=== PATIENT | female | born 2000 | race African-American/Black ===

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

== ENCOUNTER → 2019-11-30 12:32 | Outpatient (CLI) | payer MEDICAID, SELFPAY ==
[2017-07-15 13:20] VITALS: BMI 24.1
[2019-11-30 15:33] LABS: HIV - WCH Non-Reactive (Nonreactive); Hepatitis B Surface Antigen Non-Reactive (Nonreactive); Hepatitis C Antibody Non-Reactive (Nonreactive)
[2019-12-03 14:07] LABS: Chlamydia By Nucleic Acid AMP Negative (Negative)
[2019-12-04 00:29] LABS: Gonococcus By Nucleic Acid AMP Negative (Negative)
[2019-12-07 04:30] LABS: Rapid Plasmin Reagin (RPR) NONREACTIVE (NONREACTIVE)
== END ==
PROVIDERS: PCP Nurse Practitioner Primary Care; Referring Provider Student in an Organized Health Care Education/Training Program; Visit Provider Student in an Organized Health Care Education/Training Program
DX: Z11.3 Encounter for screening for infections with a predominantly sexual mode of transmission (principal)
CPT/HCPCS: 36415; 86592; 86703; 86803; 87340; 87491; 87591

== ENCOUNTER → 2020-07-23 13:19 | Outpatient (CLI) | payer MEDICAID, SELFPAY ==
[2017-07-15 13:20] VITALS: BMI 24.1
== END ==
PROVIDERS: PCP Nurse Practitioner Primary Care; Visit Provider Student in an Organized Health Care Education/Training Program
DX: N76.0 Acute vaginitis (principal)

== ENCOUNTER → 2021-01-16 10:55 | Outpatient (CLI) | payer MEDICAID, SELFPAY ==
[2021-01-24 09:26] LABS: HPV APTIMA, High Risk Positive (Negative); HPV Reflexed? YES, CHARGE PATIENT
== END ==
PROVIDERS: PCP Nurse Practitioner Primary Care; Visit Provider Student in an Organized Health Care Education/Training Program
DX: Z12.4 Encounter for screening for malignant neoplasm of cervix (principal)
CPT/HCPCS: 87624; 88175; G0145

== ENCOUNTER 2022-04-09 17:09 | Emergency (ER) | payer MEDICAID, SELFPAY ==
[2022-04-09 17:10] VITALS: BP 124/78; PULSE 85; RESP 16; TEMP 36.6; O2SAT 99; BMI 25.8
--- NOTE | 2022-04-09 18:16 | EX.ED.DYSGE1 ---
HPI History of Present Illness Chief Complaint: General Illness Narrative Narrative: 21-year-old female who denies significant past medical history except for seasonal allergies presents with upper respiratory infection type symptoms that she has had for a week. She is had nasal congestion along with rhinorrhea, sore throat, and a cough productive of green sputum. She denies any fevers or chills. She states the worst symptoms are the cough and shortness of breath. She has been taking her allergy medications and using cough drops. She presents because she has not gotten better and thinks she has a bad sinus infection. PFSH PFSH Medical History no medical history Home Medications NK 04/09/22 [History Last Taken Unknown] Allergy/AdvReac Type Severity Reaction Status Date / Time Penicillins [PCN] Allergy Hives Verified 04/09/22 17:10 Surgical History no surgical history Social History Smoking Status: Current every day smoker tobacco type: cigarettes ROS ROS ED ROS Narrative Constitutional: No fever, no chills. HEENT: Positive sore throat. No neck pain. No loss of vision. Positive nasal congestion and rhinorrhea. Cardiovascular: No chest pain. No palpitations. No pedal edema. Respiratory: Productive of green sputum cough, positive shortness of breath. Abdominal: No abdominal pain. No nausea. No vomiting. Genitourinary: No dysuria. No hematuria. Musculoskeletal: No myalgias. No arthralgias. Neurologic: No headaches. No dizziness. No lightheadedness. Skin: No rash. No change in color. Psychiatric: No depression. No anxiety. EXAM Physical Exam Narrative Exam Narrative: Afebrile. Vital signs noted. Pulse ox 99% on room air without evidence of hypoxia. HEENT: Normocephalic. Atraumatic. PERRL, EOMI. Neck soft and supple. No point tenderness or step off. Mild pharyngeal erythema but no tonsillar or pharyngeal exudate. Airway patent. No drooling or trismus. No meningismus. Cardiovascular: Regular rate and rhythm. No murmurs, rubs, or gallops appreciated. Respiratory: No tachypnea. Lungs clear to auscultation bilaterally. Gastrointestinal: Abdomen soft, nontender, with normoactive bowel sounds. No rebound or guarding. Neurological: Awake. Alert. Nonfocal, nonlateralizing. Skin: No rash. Normal color. No pallor. Musculoskeletal: No pedal edema. Full range of motion extremities. Const Vital Signs: 04/09/22 17:10 04/09/22 18:47 Temperature 97.8 F Temperature Source Temporal Pulse Rate 85 Respiratory Rate 16 Respiratory Effort Normal Non-Labored Respiratory Pattern Normal Blood Pressure 124/78 H Blood Pressure Mean 93 Pulse Ox 99 Oxygen Delivery Method Room Air MDM MDM MDM Narrative Medical decision making narrative: She does not meet any [facility] criteria for antibiotics for sore throat. I will swab her for COVID and influenza. She states her main concern is her cough and shortness of breath. She has a pulse ox of 99% on room air. Chest x-ray in 2 views will be obtained and interpreted by myself. My interpretation of her chest x-ray shows no evidence of an infiltrate or pneumothorax. I do not feel antibiotics are indicated. I also do not feel that an albuterol inhaler is indicated as she has no wheezing, and she has a normal pulse ox. I reviewed her COVID swab and influenza swab and they are negative. To be symptomatic with [id number] medications including Mucinex DM as needed. She will follow-up with her primary care provider. Return instructions to the emergency department were reviewed. Disposition is discharged home in stable condition. Lab Data Attestation: I reviewed the patient's lab results. Radiography Diagnostic Testing: Clinical Impression(s) from Imaging Studies Chest X-Ray 04/09/22 18:42 IMPRESSION: No radiographic evidence of acute cardiopulmonary disease. Electronically Signed: Huy Andrea MD at 18:54 EST , Discharge Plan Triage Chief Complaint: General Illness ED Provider: Curtis Denise Dx/Rx/DC Orders Clinical Impression: URI (upper respiratory infection), Bronchitis Instructions: ED Bronchitis, No Antibiotic (Adult), ED URI, Viral, No Abx (Adult) Prescriptions: No Action NK Stand Alone Forms: ED Work / School Excuse Primary Care Provider: Ivelisse Sood NP Referrals: Ivelisse Sood NP, AUTHORIZATION NURSE-C [Primary Care Provider] - 1 Week if not improving Disposition Disposition: Home, Self Care
--- NOTE | 2022-04-09 18:42 | RAD_ITS ---
EXAM: XR CHEST, 2 VIEWS CLINICAL INDICATION: cough, SOB TECHNIQUE: Frontal and lateral views of the chest. This report was created using [employer] report generation technology. COMPARISON: None. FINDINGS: LUNGS AND PLEURAL SPACES: Unremarkable. No consolidation or edema. No pneumothorax. No effusion. HEART: Unremarkable. Cardiac silhouette not enlarged. MEDIASTINUM: Central airways and mediastinal contour are unremarkable. BONES/JOINTS: Unremarkable. SOFT TISSUES: Unremarkable. RAD/Chest PA and Lateral IMPRESSION: No radiographic evidence of acute cardiopulmonary disease. Electronically Signed: Huy Andrea MD at 18:54 EST ,
== END 2022-04-09 19:29 | disposition home or self-care (01) ==
PROVIDERS: Emergency Provider Emergency Medicine; PCP Nurse Practitioner Primary Care; Visit Provider Emergency Medicine
DX: J06.9 Acute upper respiratory infection, unspecified (principal); J40 Bronchitis, not specified as acute or chronic; F17.210 Nicotine dependence, cigarettes, uncomplicated
CPT/HCPCS: 71046; 87428; 99282

== ENCOUNTER 2022-11-27 15:46 | Emergency (ER) | payer MEDICAID, SELFPAY ==
[2022-11-27 15:47] VITALS: BP 144/75; PULSE 98; RESP 18; TEMP 35.7; O2SAT 98
[2022-11-27 15:51] VITALS: BMI 27.8
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
[2022-11-27] MEDS: Diphth,Pertuss(Acell),Tet Vac 0.5 ML Vial IM (17:21)
[2022-11-27] MEDS: Ibuprofen 600 MG Tablet PO (17:22)
== END 2022-11-27 17:45 | disposition home or self-care (01) ==
PROVIDERS: Emergency Provider Emergency Medicine; PCP Nurse Practitioner Primary Care; Visit Provider Emergency Medicine
DX: S50.812A Abrasion of left forearm, initial encounter (principal); S60.511A Abrasion of right hand, initial encounter; F17.210 Nicotine dependence, cigarettes, uncomplicated; Z23 Encounter for immunization; X58.XXXA Exposure to other specified factors, initial encounter
CPT/HCPCS: 90471; 90715; 99283

== ENCOUNTER 2023-03-27 11:12 | Emergency (ER) | payer MEDICAID, SELFPAY ==
[2023-03-27 11:13] VITALS: BP 134/78; PULSE 104; RESP 16; TEMP 36.6; O2SAT 99; BMI 23.5
--- NOTE | 2023-03-27 11:27 | EDS_ITS ---
HPI History of Present Illness Chief Complaint: Complaint Detail of Chief Complaint: Dysuria and frequency Informant: patient Narrative Narrative: Patient presents to the emergency department with complaint of dysuria and urinary frequency. She states that she has had symptoms for over 2 months. She has not seen anybody for it. She complains of nausea. She is also had diarrhea for several months. She denies blood in her stool or urine. No family history of Crohn's disease or ulcerative colitis. She denies fevers. She denies back pain. She has no medical history otherwise. Patient denies abnormal vaginal discharge. She does not believe that she is . Patient does state that there was a foul odor to the urine. PFSH PFSH Medical History no medical history Home Medications doxycycline monohydrate 100 mg capsule 100 mg PO BID #14 CAPSULES 03/27/23 [Rx Last Taken Unknown] Allergy/AdvReac Type Severity Reaction Status Date / Time Penicillins [PCN] Allergy Hives Verified 03/27/23 11:13 Social History Smoking Status: Current every day smoker tobacco type: cigarettes ROS ROS ED Review of Systems ROS Unobtainable: other Constitutional Constitutional ED: Reports lethargy; Denies chills, fever(s), sweats or weight loss Eyes Eyes: Denies blurry vision, change in vision or diplopia ENT ENT ED: Denies rhinorrhea or sore throat Cardiovascular Cardiovascular: Denies chest pain, orthopnea or racing heartbeat Respiratory/Chest Respiratory/Chest: Reports dyspnea and dyspnea on exertion; Denies cough, orthopnea or sputum Gastrointestinal Gastrointestinal: Reports abdominal pain and nausea; Denies diarrhea or vomiting Genitourinary Genitourinary ED: Reports dysuria and urinary frequency; Denies hematuria Musculoskeletal Musculoskeletal: Denies arthralgias, back pain, myalgias or neck pain Integumentary Denies abscess, Abrasions or rash Neurologic Neurologic: Denies headache(s) or weakness Psychiatric Psychiatric: Denies anxiety, depression or suicidal thoughts Endocrine Endocrinology: Denies polydipsia, polyphagia or polyuria Hematologic/Lymphatic Hematologic/Lymphatic: Denies easy bleeding, easy bruising or lymphadenopathy Allergic/Immunologic Allergic/Immunologic ED: Denies mouth swelling, tongue swelling or urticaria EXAM Physical Exam Const Vital Signs: 03/27/23 11:13 Temperature 97.8 F Temperature Source Temporal Pulse Rate 104 H Respiratory Rate 16 Blood Pressure 134/78 H Blood Pressure Mean 96 Pulse Ox 99 Oxygen Delivery Method Room Air Positive well nourished and well developed General Appearance ED: well developed and NAD HEENT Reports TM's clear and moist mucous membranes normocephalic and atraumatic; Negative for trauma or tenderness Tympanic Membrane ED: Yes TM's clear Eyes PERRL and EOMs intact bilaterally General Eye ED: Negative for pale conjunctiva or scleral icterus Neck no lymphadenopathy, supple and no JVD General: Negative for tenderness Chest Wall inspection of chest normal and palpation of chest normal Chest: Negative for tenderness Resp normal respiratory effort and clear to auscultation bilaterally Effort and Inspection: Negative for respiratory distress or pain with movement Auscultation: Negative for rhonchi, wheezes or diminished lung sounds Cardio regular rate, regular rhythm, S1 normal heart sound, S2 normal heart sound and no murmurs Peripheral Pulses: pulses 2+ throughout GI normal to inspection, nondistended, normoactive bowel sounds, soft to palpation, non-tender, non-distended and no masses Back/Spine no CVA tenderness and no thoracic nor lumbar tenderness Extremity normal to inspection General Extremety ED: Negative for edema General Extremity: Negative for edema Neuro oriented x3, CN's II-XII intact bilaterally, no sensory deficits noted and gait normal Sensorium / Orientation: awake, alert, oriented to person, oriented to place and oriented to time Motor Exam: strength 5/5 throughout and strength abnormal Psych mental status grossly normal Skin no rashes or lesions noted and no wounds MDM MDM MDM Narrative Medical decision making narrative: Patient presents with dysuria and frequency and foul odor x 2 months. She describes lower pelvic discomfort. Initially she did not hide significant vaginal discharge. Her urinalysis obtained was essentially normal. Urine Prag was negative. After given her her results she states that she was involved with a gentleman several months ago and that is when her symptoms started and she felt like maybe he gave her a UTI. I did send off urine for gonorrhea and chlamydia. Will treat her with Rocephin and doxycycline. Advised her to follow-up with primary care physician within next 3 to 5 days. Clinically she looks well and her abdominal exam is benign and I do not feel she needs any type of imaging. Lab Data Attestation: I reviewed the patient's lab results. Labs: Laboratory Results - last 24 hr 03/27/23 11:37 Urine Color Yellow Urine Clarity Clear Urine pH 5.0 Ur Specific [place] 1.030 Urine Protein 15 H Urine Glucose (UA) Normal Urine Ketones 15 H Urine Occult Blood Negative Urine Nitrite Negative Urine Bilirubin Negative Urine Urobilinogen Normal Ur Leukocyte Esterase 25 H Urine RBC 0 SEEN Urine WBC 0-5 SEEN Ur Squamous Epith Cells 0-5 SEEN Urine Bacteria 0 SEEN Urine Mucus 0 SEEN Urine Test Negative Discharge Plan Triage Chief Complaint: Complaint ED Provider: Carina Katz Dx/Rx/DC Orders Clinical Impression: Urethritis Instructions: ED Cervicitis (STD), Treated, ED Pelvic Pain, Unknown Cause Prescriptions: New doxycycline monohydrate 100 mg capsule 100 mg PO BID Qty: 14 0RF Primary Care Provider: Ivelisse Sood NP Referrals: Ivelisse Sood NP, [facility] [Primary Care Provider] - 3-5 Days Disposition Disposition: Home, Self Care Discharge Date/Time: 03/27/23 13:18
--- OUTSIDE RECORDS SUMMARY | 2023-03-27 11:42 | XMS RPT_ITS | CCD ---
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 FoundNo Advanced Directives Records Found Additional Source Comments INFORMATION SOURCE (unrecogn ized section and content) DATE CREATED AUTHOR AUTHOR'S ORGANIZ ATION 05/19/2020 [facility] ([place]) Care Team (unrecognized sect ion and content) Care Team Personnel Name: Sadaf Digital Marketing Assistant Lisa PT Position: P3 Scheduling - Incoming Freight Clerk Advanced Member Role: Other Name: RENUKA GONZALEZ DO Position: P4 Physician - Primary Care Member Role: Primary Care Physician Address: Address: [address] [place] [id number] Name: REY SALDANA MD Position: ED Physician Member Role: ED Physician Address: Address: [facility] [address] [place] [id number] Care Team Related Persons Name: DEREK JUSTIN Address: Home [address] [place], [place] [id number] [place] Name: JUSTIN REED Address: Home [address] [place], [place] [id number] [place] Name: DEREK JUSTIN Address: Home [address] [place], [place] [id number] [place] Name: REEDJUSTIN Address: Home [address] [place], [place] [id number] [place] FOR RECORDS PERTAINING TO PATIENTS WHO ARE OR HAVE BEEN ENROLLED IN A CHEMICAL DEPENDENCY/SUBSTANCEABUSE PROGRAM, SOME INFORMATION MAY BE OMITTED. This clinical summary was aggregated from multiple sources. Caution should be exercised in using it in the provision of clinical care. This summary normalizes information from multiple sources, and as a consequence, information in this document may materially change the coding, format and clinical context of patient data. In addition, data may be omitted in some cases. CLINICAL DECISIONS SHOULD BE BASED ON THE PRIMARY CLINICAL RECORDS. [facility] [employer], [facility]. provides no warranty or guarantee of the accuracy or completeness of information in this document.
[2023-03-27 11:48] LABS: Bacteria 0 SEEN /hpf (None Seen); Mucous, Urine 0 SEEN /hpf (<or=2+); Red Blood Cells-Urine 0 SEEN /hpf (0-5)
[2023-03-27 11:50] LABS: Color, Urine Yellow (Yellow); Glucose, Dipstick Normal (Normal); Ketone-Dipstick 15 mg/dl (Negative); Leukocyte Esterase-Dipstick 25 /ul (Negative); Nitrite-Dipstick Negative (Negative); Occult Blood-Urine Negative /ul (Negative); Protein-Dipstick 15 mg/dl (Negative); Urine Bilirubin Dipstick Negative (Negative); Urine Clarity Clear (Clear); Urine Urobilinogen Normal (Normal)
[2023-03-27 11:53] LABS: Internal QC Validated? YES +Cl - CLEAR BKGD; Pregnancy, Urine Negative Negative; Record Kit Lot#,Urine Preg HCG0000667200; Squamous Epithelial Cells - UA 0-5 SEEN /hpf (5-10); White Blood Cells 0-5 SEEN /hpf (0-5)
[2023-03-27] MEDS: Doxycycline 100 MG CAPSULE PO (13:10)
[2023-03-27] MEDS: Ceftriaxone 500 MG Vial 250 MG IM (13:10)
== END 2023-03-27 13:18 | disposition home or self-care (01) ==
PROVIDERS: Emergency Provider Emergency Medicine; PCP Nurse Practitioner Primary Care; Visit Provider Emergency Medicine
DX: N34.2 Other urethritis (principal); F17.210 Nicotine dependence, cigarettes, uncomplicated
CPT/HCPCS: 81001; 81025; 87491; 87591; 96372; 99282; A4216

== ENCOUNTER 2023-06-13 18:19 | Emergency (ER) | payer MEDICAID, SELFPAY ==
[2023-06-13 18:20] VITALS: BP 138/95; PULSE 110; RESP 14; TEMP 36.7; O2SAT 99; BMI 22.7
[2023-06-13 18:42] VITALS: BP 122/92; PULSE 104; RESP 16; TEMP 36.6; O2SAT 97
--- NOTE | 2023-06-13 18:52 | EX.ED.VIS.PS ---
HPI HPI - Psych History of Present Illness Chief Complaint: Mental Health Narrative Narrative: 21-year-old female presenting with depression. She states she has had this in the past. She states her mother committed suicide. She used to see some kind of counselor downtown in [place] but she cannot recall the name of the counselor. She states that she wanted her to be on medication but the patient states that she does not believe medication helps people and believes as long as she prays and has a healthy diet she will get better. Patient has never been on any medication. She states that she has been struggling with depression. She started having cutting behavior on her left arm which she has not had in the past. She denies suicidal ideation and states she does not want to . She denies homicidal ideation or desire to hurt anybody. She states that she had seen somebody from [facility] at 1 point but that they did not shah and in addition to that she did not want to walk downtown to get help. [facility] Medical History Depression Home Medications drospirenone 3 mg-ethinyl estradiol 0.02 mg tablet (Tonia (28)) 1 tab PO ONCE 07/16/17 [History Last Taken Unknown] Allergy/AdvReac Type Severity Reaction Status Date / Time Penicillins Allergy Mild Unknown Verified 06/13/23 18:30 Family History no significant family his Surgical History no surgical history Social History Smoking Status: Current some day smoker tobacco type: e-cigarettes ROS ROS ED Constitutional Constitutional ED: Denies chills, fever(s) or sweats Eyes Eyes: Denies blurry vision or change in vision ENT ENT ED: Denies ear pain or sore throat Cardiovascular Cardiovascular: Denies chest pain, palpitations or racing heartbeat Respiratory/Chest Respiratory/Chest: Denies cough, dyspnea or sputum Gastrointestinal Gastrointestinal: Denies abdominal pain, constipation, diarrhea, nausea or vomiting Genitourinary Genitourinary ED: Denies dysuria, hematuria or urinary frequency Musculoskeletal Musculoskeletal: Denies arthralgias, myalgias or neck pain Integumentary Denies abscess, Abrasions or rash Neurologic Neurologic: Denies headache(s), paresthesias or weakness Psychiatric Psychiatric: Reports depression; Denies anxiety, suicidal ideation or suicidal thoughts Endocrine Endocrinology: Denies polydipsia or polyuria EXAM Physical Exam Const Vital Signs: 06/13/23 18:20 06/13/23 18:42 06/13/23 19:20 Temperature 98.1 F 98 F Temperature Source Temporal Temporal Pulse Rate 110 H 104 H 78 Respiratory Rate 14 16 16 Blood Pressure 138/95 H 122/92 H Blood Pressure Mean 109 102 Pulse Ox 99 97 100 Oxygen Delivery Method Room Air Room Air 06/13/23 20:00 06/13/23 21:00 Temperature Temperature Source Pulse Rate 82 78 Respiratory Rate 16 16 Blood Pressure Blood Pressure Mean Pulse Ox 100 98 Oxygen Delivery Method Positive well nourished General Appearance ED: NAD; Negative for pallor HEENT Reports moist mucous membranes Eyes PERRL and EOMs intact bilaterally Resp normal respiratory effort Cardio Rate: regular rate Rhythm: regular rhythm Neuro oriented x3 and CN's II-XII intact bilaterally Sensorium / Orientation: alert Motor Exam: strength 5/5 throughout Psych mental status grossly normal, denies hallucinations, denies homicidal ideation and denies suicidal ideation Appearance: appropriate Attitude: calm and guarded Activity / Motor Behavior: fidgetting and avoids eye contact Speech: normal speech Mood & Affect: sad Thought Process: No disorganized, No confused, No confabulating and No illogical Thought Content: normal thought content, No suicidality, No homicidality, No phobia(s) and No delusion(s) Attention / Concentration: attention grossly intact Memory / Cognition: memory grossly intact Insight: fair Judgement: fair Skin Skin Narrative: Multiple superficial abrasions to the left arm. No active bleeding. No lacerations. General Skin Exam: Negative for jaundice or pallor MDM MDM MDM Narrative Medical decision making narrative: Patient was able to talk to crisis. Crisis counselor spoke with her at length as well as her roommate and her and to is like a mother to her. Apparently there was a lot of talk of suicide and at one point they had a gun in the house where the patient states she was going to kill herself with a gun so the gun had to be removed. Apparently the patient has been hallucinating and the family has become very concerned as well as her friend. She has history of suicide attempt by drug overdose in the past. Apparently the patient also hearing voices. At this point I feel the patient would benefit from inpatient care and we did pink slip the patient. Appropriate lab work for clearance will be obtained. CBC shows normal white blood cell count 9.2. Hemoglobin 14.4. Platelets 333. Renal function within normal limits. Potassium slight low at 3.0 this was repleted orally with 40 mill equivalents. hCG negative. EtOH less than 3. Urine drug screen pending. Rapid COVID pending. Current plan is for placement once medically cleared. Impression: 1. Depression 2. Suicidal ideation 3. Hypokalemia 4. Superficial abrasions left arm Lab Data Attestation: I reviewed the patient's lab results. Labs: Laboratory Results - last 24 hr 06/13/23 18:46 WBC 9.2 RBC 4.94 Hgb 14.4 Hct 43.1 MCV 87.2 MCH 29.1 MCHC 33.4 RDW Std Deviation 39.2 RDW Coeff of Bibi 12.3 Plt Count 393 MPV 10.6 Immature Gran % (Auto) 0.200 Neut % (Auto) 64.6 Lymph % (Auto) 29.5 [place] % (Auto) 5.2 Eos % (Auto) 0.1 Baso % (Auto) 0.4 Absolute Neuts (auto) 5.9 Absolute Lymphs (auto) 2.72 Nucleated RBC % 0 Sodium 139 Potassium 3.0 L Chloride 104 Carbon Dioxide 28.0 Anion Gap 7 BUN 9 Creatinine 0.96 Estim Creat Clear Calc 85.32 Est GFR (MDRD) Af Amer 92 Est GFR (MDRD) Non-Af 76 BUN/Creatinine Ratio 9.3 L Glucose 91 Calcium 9.7 Serum , Qual NEGATIVE Ethyl Alcohol < 3.0 Discharge Plan Triage Chief Complaint: Mental Health ED Provider: Raghav De La Vega Dx/Rx/DC Orders Prescriptions: No Action drospirenone-ethinyl estradiol [Tonia (28)] 3-0.02 mg tablet 1 tab PO ONCE Primary Care Provider: Ivelisse Sood NP Referrals: Ivelisse Sood NP, [facility] [Primary Care Provider] -
[2023-06-13 19:20] VITALS: PULSE 78; RESP 16; O2SAT 100
[2023-06-13 20:00] VITALS: PULSE 82; RESP 16; O2SAT 100
[2023-06-13 21:00] VITALS: PULSE 78; RESP 16; O2SAT 98
--- NOTE | 2023-06-13 21:44 | ED.RN ---
PATIENT SEEN ON [facility] GETTING DRESSED AFTER CRISIS WAS DONE SEEING PATIENT. I ADVISED THE PATIENT THAT UNTIL I HAD HEARD FROM CRISIS AND THE DOCTOR SHE NEEDED TO REMAIN IN THE GOWN. PATIENT BECAME AGITATED AND STATED THIS IS FUCKING ER, THIS IS SUPPOSE TO BE FAST. I INFORMED THE PATIENT THAT SINCE CAME IN FOR MENTAL HEALTH AND EVALUATION DOES TAKE TIME. PATIENT THEN STATED LISTEN HERE BITCH, I'M NOT FUCKING STAYING HERE. THIS NURSE STEPPED OUT OF ROOM, CHARGE NURSE INFORMED AND SECURITY/POLICE CALLED TO THE DEPARTMENT. ARTIST'S MODEL INFORMED OF CURRENT BEHAVIOR. CRISIS SPOKE WITH DR. FERRER. DR. FERRER LET THIS NURSE THAT SHE WAS NOW PINKED SLIPPED. ARTIST'S MODEL INFORMED PATIENT THAT SHE WAS BEING PLACED AND COULD NOT LEAVE THE FACILITY. PATIENT VERY IRATE. THIS NURSE AND CHARGE NURSE NURSE STEPPED BACK INTO THE ROOM TO HAVE HER REMOVE HER BELONGINGS AND HAVE HER GET BACK INTO A GOWN. PATIENT STATED FUCK NO. AND CALLED HER AUNT. AFTER YELLING AT HER AUNT ON THE PHONE, PATIENT THREW THE PHONE AND BEGAN TO TAKE HER BELONGINGS OFF. BELONGING GATHERED. PATIENT CURRENTLY IN BED.
[2023-06-13 21:53] LABS: Absolute Lymphocyte Count 2.72 X10^3/uL (0.83-4.51); Absolute Neutrophil Count 5.9 X10^3/uL (2.0-7.7); Basophil# 0.04 X10^3/uL; Basophil% 0.4 % (0-1); Eosinophil# 0.01 X10^3/uL; Eosinophils% 0.1 % (0-5); Hematocrit 43.1 % (37-47); Hemoglobin 14.4 g/dL (12.0-15.0); Internal QC Validated? YES +Cl - CLEAR BKGD; Lymphocyte # 2.72 X10^3/ul (0.83-4.51); Lymphocyte % 29.5 % (19-41); Mean Corp Hgb Conc 33.4 g/dL (32-36); Mean Corpuscular Hgb 29.1 pg (27.0-32.0); Mean Corpuscular Volume 87.2 fL (81-99); Mean Platelet Vol. 10.6 fl (6.2-12.0); Monocyte# 0.48 X10^3/uL; Monocyte% 5.2 % (0-10); NRBC Flagged by Analyzer 0 % (0-5); Neutrophil # 5.94 X10^3/uL (2.7-7.7); Neutrophil % 64.6 % (47-70); Platelet Count 393 K/mm3 (150-450); Pregnancy, Serum, hCG Quali. NEGATIVE Negative; RBC Distribution Width CV 12.3 % (11.6-14.6); RBC Distribution Width SD 39.2 fl (35.1-43.9); Red Blood Count 4.94 M/mm3 (4.2-5.4); White Blood Count 9.2 K/mm3 (4.4-11.0)
[2023-06-13 21:54] LABS: Alcohol, Blood (Medical)-Serum < 3.0 mg/dL
[2023-06-13 21:56] LABS: Anion Gap 7 (5-15); BUN 9 mg/dL (7-18); BUN/Creat Ratio 9.3 RATIO (10-20); Calcium,Total 9.7 mg/dL (8.5-10.1); Chloride 104 mmol/L (98-107); Creatinine, Serum 0.96 mg/dL (0.55-1.02); EST Glomerular Filtration Rate 76 mL/min (>60); Est Glom Filt Rate - Afr Amer 92 mL/min (>60); Estimated Creatinine Clearance 85.32 ml/min; Glucose 91 mg/dL (74-106); Sodium Level 139 mmol/L (136-145)
[2023-06-13 22:09] VITALS: BP 128/78; PULSE 98; RESP 14; TEMP 36.6; O2SAT 98
[2023-06-13] MEDS: Potassium Chloride Oral Tablet 20 MEQ 40 MEQ PO (22:29)
[2023-06-13 23:52] LABS: Amphetamine Urine VISTA NEGATIVE (<1000 ng/mL); Barbiturate Urine VISTA NEGATIVE (< 200 ng/mL); Benzodiazepine Urine VISTA NEGATIVE (< 200 ng/mL); Cocaine Urine VISTA NEGATIVE (< 300 ng/mL); Ecstacy Urine VISTA NEGATIVE (< 500 ng/mL); Methadone Urine VISTA NEGATIVE (< 300 ng/mL); PCP Urine VISTA NEGATIVE (< 25 ng/mL); THC Urine VISTA POSITIVE (< 50 ng/mL); Vista UDS pH Range 7
[2023-06-14 00:22] VITALS: PULSE 81; RESP 18; O2SAT 99
[2023-06-14] MEDS: Haloperidol Lactate 5 MG/ML Vial IM (04:45)
[2023-06-14 04:54] VITALS: BP 118/76; PULSE 79; RESP 18; TEMP 36.6; O2SAT 100
--- NOTE | 2023-06-14 04:55 | ED.RN ---
Patient increasing in pacing in room. Patient is having delusions and is yelling while pacing. Agitation increasing as time goes by. Attempted to de-escalate. Patient states typically she meditates so calm. Encouraged meditation and deep breathing to center self. Unsuccessful, patient continues to yell about her family putting her in the ER. Dr. John informed of behavior and new orders given.
[2023-06-14 07:40] VITALS: BP 118/76; PULSE 79; RESP 18; O2SAT 100
== END 2023-06-14 08:01 ==
PROVIDERS: Emergency Provider Student in an Organized Health Care Education/Training Program; PCP Nurse Practitioner Primary Care; Visit Provider Student in an Organized Health Care Education/Training Program
DX: F32.A Depression, unspecified (principal); R45.851 Suicidal ideations; E87.6 Hypokalemia; S50.812A Abrasion of left forearm, initial encounter; F17.290 Nicotine dependence, other tobacco product, uncomplicated; X58.XXXA Exposure to other specified factors, initial encounter
CPT/HCPCS: 80048; 80307; 80320; 84703; 85025; 87635; 96372; 99285; G0480

== ENCOUNTER 2023-07-24 12:50 | Emergency (ER) | payer MEDICAID, SELFPAY ==
[2023-07-24] VITALS (8 sets, daily range): BP systolic 117–164; BP diastolic 71–100; PULSE 65–117; RESP 14–16; TEMP 36.7–36.8; O2SAT 98–99; BMI 24.2
--- NOTE | 2023-07-24 13:00 | ED.RN ---
when this RN asked pt if she was having any thoughts of harming anyone else?, patient states no, just you
--- NOTE | 2023-07-24 13:14 | EX.ED.VIS.PS ---
HPI <PETRA Ochoa - Last Filed: 07/24/23 17:51> HPI - Psych History of Present Illness Chief Complaint: Mental Health Narrative Narrative: Patient presenting today after being pink slipped by the police after being found walking in the street without clothes on. She does admit to taking PCP today. She reports that she has snakes all over her body. She repeatedly is yelling for a person named Nelson. Patient then stated, I need you to put your hands on my butt and get something out of there. When asked if she had any thoughts of harming others she reported that she had thoughts of harming the nurse and I. She denies any SI. PFSH <PETRA Ochoa - Last Filed: 07/24/23 17:51> PFSH Medical History Depression Allergy/AdvReac Type Severity Reaction Status Date / Time Penicillins Allergy Mild Unknown Verified 06/13/23 18:30 Social History Smoking Status: Current some day smoker tobacco type: e-cigarettes ROS <PETRA Ochoa - Last Filed: 07/24/23 17:51> ROS ED Constitutional Constitutional ED: Denies chills or fever(s) Cardiovascular Cardiovascular: Denies chest pain Respiratory/Chest Respiratory/Chest: Denies cough or dyspnea Gastrointestinal Gastrointestinal: Denies abdominal pain, nausea or vomiting Musculoskeletal Musculoskeletal: Denies arthralgias or myalgias Integumentary Denies rash Psychiatric Psychiatric: Denies suicidal ideation or suicidal thoughts EXAM <PETRA Ochoa - Last Filed: 07/24/23 17:51> Physical Exam Const Vital Signs: 07/24/23 12:51 07/24/23 13:50 07/24/23 15:00 Temperature 98.3 F Temperature Source Oral Pulse Rate 117 H 78 80 Respiratory Rate 16 16 14 Blood Pressure 164/100 H 128/99 H 120/88 H Blood Pressure Mean 121 108 98 Pulse Ox 99 98 99 Oxygen Delivery Method Room Air Room Air Room Air 07/24/23 16:00 07/24/23 17:00 07/24/23 18:00 Temperature Temperature Source Pulse Rate 87 85 74 Respiratory Rate 16 16 16 Blood Pressure 117/85 H 125/71 H 143/87 H Blood Pressure Mean 95 89 105 Pulse Ox 98 99 99 Oxygen Delivery Method Room Air Room Air Room Air 07/24/23 18:55 07/24/23 20:50 Temperature 98.1 F Temperature Source Pulse Rate 78 65 Respiratory Rate 16 16 Blood Pressure 120/83 H 123/80 H Blood Pressure Mean 95 94 Pulse Ox 99 99 Oxygen Delivery Method Room Air Positive well nourished and well developed General Appearance ED: well developed HEENT Reports normocephalic and head/scalp atraumatic Mouth ED: Yes moist mucous membranes normal Eyes PERRL and EOMs intact bilaterally Neck full ROM and supple Chest Wall inspection of chest normal Resp normal respiratory effort and clear to auscultation bilaterally Cardio regular rate and regular rhythm GI soft to palpation, non-tender, non-distended and no masses Back/Spine normal ROM and normal to inspection Extremity normal to inspection and full ROM Neuro oriented x3, CN's II-XII intact bilaterally, moves all extremities, no focal motor deficits and no sensory deficits noted Sensorium / Orientation: awake and alert Psych Attitude: bizarre, uncooperative, agitated and aggressive Speech: loud Mood & Affect: hostile affect Thought Process: disorganized and illogical Thought Content: homicidality, delusion(s) and hallucination(s) Insight: poor Judgement: poor Skin no rashes or lesions noted and no wounds <Dr. Javier Chakraborty MD - Last Filed: 07/24/23 21:05> Physical Exam Const Vital Signs: 07/24/23 12:51 07/24/23 13:50 07/24/23 15:00 Temperature 98.3 F Temperature Source Oral Pulse Rate 117 H 78 80 Respiratory Rate 16 16 14 Blood Pressure 164/100 H 128/99 H 120/88 H Blood Pressure Mean 121 108 98 Pulse Ox 99 98 99 Oxygen Delivery Method Room Air Room Air Room Air 07/24/23 16:00 07/24/23 17:00 07/24/23 18:00 Temperature Temperature Source Pulse Rate 87 85 74 Respiratory Rate 16 16 16 Blood Pressure 117/85 H 125/71 H 143/87 H Blood Pressure Mean 95 89 105 Pulse Ox 98 99 99 Oxygen Delivery Method Room Air Room Air Room Air 07/24/23 18:55 07/24/23 20:50 Temperature 98.1 F Temperature Source Pulse Rate 78 65 Respiratory Rate 16 16 Blood Pressure 120/83 H 123/80 H Blood Pressure Mean 95 94 Pulse Ox 99 99 Oxygen Delivery Method Room Air [facility] <PETRA Ochoa - Last Filed: 07/24/23 17:51> [facility] Narrative Medical decision making narrative: Patient presenting due to drug-induced psychosis. Patient is nonsensical, she is talking to people who are not there. She did begin to yell and scream, despite being told to calm down she continued to act inappropriately, she was placed in 4-point restraints and medicated with Haldol and Versed. Restraints will be removed per protocol. Labs obtained. Crisis evaluation is pending. The last time they had evaluated her she did have hallucinations and significant depression, she was never treated for this with medication. Crisis does feel patient would benefit from inpatient treatment from a psychiatric facility. She is medically cleared and placement is pending. I have personally performed a face to face assessment of the patient and have reviewed the NIKOLAS Note. I performed a substantive portion of the visit including all aspects of the following. My christianson findings include: History is remarkable for patient undressed herself in public. She is breast-feeding. She is inappropriate. She states she did PCP. Patient is correctable. There are times she is not. She has tangential thoughts. She is inappropriate. I was informed by nursing staff that she was masturbating at 1 point and recommended not shaking her hand. History is limited because of her acute psychosis. Exam is remarkable for her exposing her self. History and physical was performed with nurse in the room. Patient has inappropriate smile. Her speech is slightly pressured. Vital signs are marked for tachycardia. HEENT exam is remarkable for dry mucosa. Lungs are clear to auscultation. Heart is rapid. Abdomen is benign. Patient is psychotic. Medical Decision Making suspect patient has drug-induced psychosis. Patient's behavior was unruly inappropriate and placed in 4-point restraints and medicated with 5 of Haldol and 2 of Versed. On reassessment she is somnolent. Will have nurse follow removal of restraint per protocol. Other additions or changes: [None] Lab Data Attestation: I reviewed the patient's lab results. Lab results narrative: WBC 19.6, potassium 2.6, creatinine 1.34, glucose 267, urine toxicology screen is positive for amphetamines, MDMA, and cannabinoids Labs: Laboratory Results - last 24 hr 07/24/23 07/24/23 13:25 13:50 WBC 19.6 H RBC 4.98 Hgb 14.6 Hct 44.2 MCV 88.8 MCH 29.3 MCHC 33.0 RDW Std Deviation 39.8 RDW Coeff of Bibi 12.2 Plt Count 431 MPV 9.7 Immature Gran % (Auto) 0.400 Neut % (Auto) 86.7 H Lymph % (Auto) 8.0 L [place] % (Auto) 4.5 Eos % (Auto) 0.1 Baso % (Auto) 0.3 Absolute Neuts (auto) 17.0 H Absolute Lymphs (auto) 1.57 Nucleated RBC % 0 Sodium 140 Potassium 2.6 L* Chloride 106 Carbon Dioxide 17.0 L Anion Gap 17 H BUN 10 Creatinine 1.34 H Estim Creat Clear Calc 61.13 Est GFR (MDRD) Af Amer 63 Est GFR (MDRD) Non-Af 52 L BUN/Creatinine Ratio 7.5 L Glucose 267 H Calcium 9.8 Serum , Qual NEGATIVE Urine Opiates Screen NEGATIVE Urine Methadone Screen NEGATIVE Ur Barbiturates Screen NEGATIVE Ur Phencyclidine Scrn NEGATIVE Ur Amphetamines Screen POSITIVE H MDMA (Ecstasy) Screen POSITIVE H U Benzodiazepines Scrn NEGATIVE Urine Cocaine Screen NEGATIVE U Cannabinoids Screen POSITIVE H Ur Drug Screen Comment Ethyl Alcohol 4.0 <Dr. Javier Chakraborty MD - Last Filed: 07/24/23 21:05> MDM MDM Narrative Medical decision making narrative: I have personally performed a face to face assessment of the patient and have reviewed the NIKOLAS Note. I performed a substantive portion of the visit including all aspects of the following. My christianson findings include: History is remarkable for patient undressed herself in public. She is breast-feeding. She is inappropriate. She states she did PCP. Patient is correctable. There are times she is not. She has tangential thoughts. She is inappropriate. I was informed by nursing staff that she was masturbating at 1 point and recommended not shaking her hand. History is limited because of her acute psychosis. Exam is remarkable for her exposing her self. History and physical was performed with nurse in the room. Patient has inappropriate smile. Her speech is slightly pressured. Vital signs are marked for tachycardia. HEENT exam is remarkable for dry mucosa. Lungs are clear to auscultation. Heart is rapid. Abdomen is benign. Patient is psychotic. Medical Decision Making suspect patient has drug-induced psychosis. Patient's behavior was unruly inappropriate and placed in 4-point restraints and medicated with 5 of Haldol and 2 of Versed. On reassessment she is somnolent. Will have nurse follow removal of restraint per protocol. Other additions or changes: [None] Lab Data Lab results narrative: WBC 19.6, potassium 2.6, creatinine 1.34, glucose 267, urine toxicology screen is positive for amphetamines, MDMA, and cannabinoids patient has leukocytosis. This is probably stress related. There is no bandemia. H&H is normal. Patient does have hypokalemia. She was treated with p.o. potassium, total of 80 mEq. Talk screen is positive for amphetamines, ecstasy and THC. Alcohol was minimally detected. Serum test was negative. Glucose is elevated to 67. Patient does have a CO2 of 17 with an anion gap of 17. Labs: Laboratory Results - last 24 hr 07/24/23 07/24/23 13:25 13:50 WBC 19.6 H RBC 4.98 Hgb 14.6 Hct 44.2 MCV 88.8 MCH 29.3 MCHC 33.0 RDW Std Deviation 39.8 RDW Coeff of Bibi 12.2 Plt Count 431 MPV 9.7 Immature Gran % (Auto) 0.400 Neut % (Auto) 86.7 H Lymph % (Auto) 8.0 L [place] % (Auto) 4.5 Eos % (Auto) 0.1 Baso % (Auto) 0.3 Absolute Neuts (auto) 17.0 H Absolute Lymphs (auto) 1.57 Nucleated RBC % 0 Sodium 140 Potassium 2.6 L* Chloride 106 Carbon Dioxide 17.0 L Anion Gap 17 H BUN 10 Creatinine 1.34 H Estim Creat Clear Calc 61.13 Est GFR (MDRD) Af Amer 63 Est GFR (MDRD) Non-Af 52 L BUN/Creatinine Ratio 7.5 L Glucose 267 H Calcium 9.8 Serum , Qual NEGATIVE Urine Opiates Screen NEGATIVE Urine Methadone Screen NEGATIVE Ur Barbiturates Screen NEGATIVE Ur Phencyclidine Scrn NEGATIVE Ur Amphetamines Screen POSITIVE H MDMA (Ecstasy) Screen POSITIVE H U Benzodiazepines Scrn NEGATIVE Urine Cocaine Screen NEGATIVE U Cannabinoids Screen POSITIVE H Ur Drug Screen Comment Ethyl Alcohol 4.0 Discharge Plan Triage Chief Complaint: Mental Health ED Midlevel Provider: Angelita Durant ED Provider: Javier Chakraborty Dx/Rx/DC Orders Clinical Impression: Depression, Drug-induced psychotic disorder, High anion gap metabolic acidosis, Leukocytosis, Nondiabetic hyperglycemia, Acute hypokalemia Primary Care Provider: Ivelisse Sood NP Referrals: Ivelisse Sood NP, [facility] [Primary Care Provider] - Disposition Disposition: Psychiatric Hospital or Unit Discharge Location: [facility]
[2023-07-24 13:36] LABS: Absolute Lymphocyte Count 1.57 X10^3/uL (0.83-4.51); Basophil# 0.06 X10^3/uL; Basophil% 0.3 % (0-1); Eosinophil# 0.01 X10^3/uL; Eosinophils% 0.1 % (0-5); Hematocrit 44.2 % (37-47); Hemoglobin 14.6 g/dL (12.0-15.0); Lymphocyte # 1.57 X10^3/ul (0.83-4.51); Mean Corpuscular Hgb 29.3 pg (27.0-32.0); Mean Corpuscular Volume 88.8 fL (81-99); Mean Platelet Vol. 9.7 fl (6.2-12.0); Monocyte# 0.88 X10^3/uL; Monocyte% 4.5 % (0-10); NRBC Flagged by Analyzer 0 % (0-5); Neutrophil # 17.02 X10^3/uL (2.7-7.7); Neutrophil % 86.7 % (47-70); Platelet Count 431 K/mm3 (150-450); RBC Distribution Width CV 12.2 % (11.6-14.6); RBC Distribution Width SD 39.8 fl (35.1-43.9); Red Blood Count 4.98 M/mm3 (4.2-5.4); White Blood Count 19.6 K/mm3 (4.4-11.0)
--- NOTE | 2023-07-24 13:38 | ED.RN ---
pt brought in by PD with handcuffs on. handcuffs removed by PD. patient with auditory and visual hallucinations. pt thrashing around in bed and swinging arms and kicking legs. patient repeatedly undressing herself after nursing staff covers her with a gown or blanket. pt placed in 4-point locked restraints due to acute psychosis with potential to harm herself and others while necessary medical treatment is delivered.
[2023-07-24 13:42] LABS: Internal QC Validated? YES +Cl - CLEAR BKGD; Pregnancy, Serum, hCG Quali. NEGATIVE Negative
[2023-07-24] MEDS: Haloperidol Lactate 5 MG/ML Vial IM (13:43)
[2023-07-24] MEDS: Midazolam 2 MG/2 ML Syringe IM (13:43)
[2023-07-24 13:50] LABS: Anion Gap 17 (5-15); BUN 10 mg/dL (7-18); BUN/Creat Ratio 7.5 RATIO (10-20); Calcium,Total 9.8 mg/dL (8.5-10.1); Chloride 106 mmol/L (98-107); Creatinine, Serum 1.34 mg/dL (0.55-1.02); EST Glomerular Filtration Rate 52 mL/min (>60); Est Glom Filt Rate - Afr Amer 63 mL/min (>60); Estimated Creatinine Clearance 61.13 ml/min; Glucose 267 mg/dL (74-106); Potassium 2.6 mmol/L (3.5-5.1); Sodium Level 140 mmol/L (136-145)
--- NOTE | 2023-07-24 13:52 | NURSING ---
call from lab, K+ 2.6 , dr. Chakraborty made aware
[2023-07-24 14:25] LABS: Amphetamine Urine VISTA POSITIVE (<1000 ng/mL); Barbiturate Urine VISTA NEGATIVE (< 200 ng/mL); Benzodiazepine Urine VISTA NEGATIVE (< 200 ng/mL); Cocaine Urine VISTA NEGATIVE (< 300 ng/mL); Ecstacy Urine VISTA POSITIVE (< 500 ng/mL); Methadone Urine VISTA NEGATIVE (< 300 ng/mL); PCP Urine VISTA NEGATIVE (< 25 ng/mL); THC Urine VISTA POSITIVE (< 50 ng/mL); Vista UDS pH Range 5
[2023-07-24] MEDS: Potassium Chloride Oral Soln 20 MEQ/15 ML UDC 40 MEQ PO ×2 (15:22→16:33)
--- NOTE | 2023-07-24 20:45 | ED.RN ---
Attempted to call report to the facility, they did not answer.
--- NOTE | 2023-07-24 20:56 | ED.RN ---
This RN attempted to call report again and got no answer.
--- NOTE | 2023-07-24 21:19 | ED.RN ---
This RN attempted to call report again and did not get an answer.
== END 2023-07-24 21:32 ==
PROVIDERS: Physician Assistant; Emergency Provider Emergency Medicine; PCP Nurse Practitioner Primary Care; Visit Provider Emergency Medicine
DX: F32.A Depression, unspecified (principal); F23 Brief psychotic disorder; E87.6 Hypokalemia; E87.20 Acidosis, unspecified; F17.290 Nicotine dependence, other tobacco product, uncomplicated; D72.829 Elevated white blood cell count, unspecified; R73.9 Hyperglycemia, unspecified
CPT/HCPCS: 51701; 80048; 80307; 80320; 84703; 85025; 96372; 99285; P9612; G0480